=== PATIENT | male | born 1970 | race Caucasian/White ===

== ENCOUNTER 2021-11-09 07:45 | Outpatient (RCR) | payer OTHER, SELFPAY ==
--- NOTE | 2021-10-15 09:37 | PTOPEVAL ---
Thank you for referring Kenny Dia to [facility].? The patient is scheduled to be seen for therapy? 2 x/week for 6 weeks. Please review, sign, date and return this plan of care LATASHA. I agree with and certify that the following plan of care is medically necessary. Referring Physician Date Attending Provider: JANEE,AYANNA TOLBERT Diagnosis lakeisha knee pain with OA Onset chronic Additional Evaluation Detail He received recent injections of his knees. MD is considering knee replacement if injections and therapy do not improve symptoms. Subjective Information He had arthroscopic surgery Query Text:As Reported By Patient/ lakeisha knee ~ 20 yrs ago with Family improved symptoms on right knee only. 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 His knee pain varies daily. Denies any fitness program or stretching program. Pain Assessment Left Knee(s) Reported Pain Level 3 Pain Description Cramping Pain Frequency Chronic,Continuous Lowest Pain Intensity 3 Greatest Pain Intensity 8 Pain Aggravating Factors ADL's,Bending,Exercise/ Activity,Lifting,Prolonged Position,Sitting,Stair Climbing,Walking,Weight Bearing/Standing Right Knee(s) Reported Pain Level 3 Pain Description Cramping Pain Frequency Chronic,Continuous Lowest Pain Intensity 3 Greatest Pain Intensity 8 Pain Aggravating Factors ADL's,Bending,Exercise/ Activity,Lifting,Stair Climbing,Walking,Weight Bearing/Standing Lower Extremity Range of Motion General Lower Extremity Range of Motion Gross Lower Extremity Range of Motion right knee 0-105 dg Comments left knee 0-115 dg pain with lakeisha knee ext Lower Extremity Muscle Strength Testing General Lower Extremity Strength Gross Lower Extremity Strength lakeisha hip flex/ext: 12/02
--- NOTE | 2021-11-12 07:04 | PCPTNOTE ---
Patient called & cancelled scheduled appointment this date due to work. He did not reschedule at this time.
--- NOTE | 2021-11-22 07:19 | PCPTNOTE ---
Pt did not show for today's therapy visit. Called and left a message.
--- NOTE | 2021-11-22 11:11 | PCPTNOTE ---
Spoke with pt, who states he forgot about his appt today. He has f/u with MD this week. Does not think therapy has improved his symptoms significantly. Will DC skilled therapy services at this time.
--- NOTE | 2021-11-22 11:19 | PCPTNOTE ---
Admitting Provider: Attending Provider: JANEE,AYANNA TOLBERT Patient:Kenny Dia Date of :1970 Physical Therapy Discharge Note Patient has been seen for 8 therapy visits with 2 missed visits to address his chronic knee pain. As a result of therapy services he demonstrates slight improved strength and knee motion. He continues to be significantly limited with all daily task and work task due to pain. He has been provided a HEP and demonstrates indep. The goals have been partially met at this time. Will DC skilled therapy services at this time due to limited progress noted with pain and tolerance with functional activities. Thank you for referring this patient to [facility]. Please review, sign, date and return this discharge summary LATASHA. I have been updated about the patient's current status and I agree with discharge from the above service at this time. Referring Physician Date
== END 2021-11-23 09:39 | disposition home or self-care (01) ==
LOC: ANHPT 07:45
PROVIDERS: PCP Family Medicine; Visit Provider Physician Assistant
DX: M17.0 Bilateral primary osteoarthritis of knee (principal)
CPT/HCPCS: 97110; 97112; 97140; 97162; 97530

== ENCOUNTER 2022-07-07 00:24 | Day surgery (SDC) | payer OTHER, SELFPAY ==
[2022-06-28 09:34] VITALS: BMI 40.0
[2022-07-07 06:55] VITALS: BP 163/85; PULSE 83; RESP 18; TEMP 36.2; O2SAT 98
[2022-07-07] MEDS: LACTATED RINGERS 1,000 ML 150 ML IV CONT (07:07)
--- NOTE | 2022-07-07 07:49 | PM.HPGS ---
History of Present Illness History of Present Illness Consent: Risks, benefits, and alternatives have been discussed and questions answered. Patient agrees to proceed with procedure. Chief complaint: neoplasm screening, GERD Narrative: Kenny Dia is a 52 year old male Presents for colonoscopy and EGD. Patient desires neoplasia screening colonoscopy because of his age. He has never had 1. Bowel movements are normally has no bleeding. Additionally patient has a long history of acid reflux in the past. He would have frequent regurgitation. Previously prescribed Nexium. He subsequently discontinued this takes an [id number] acid suppression from [place]. He denies any significant heartburn presently. Over the last year he has had difficulty swallowing solid foods. He states that it catches in his throat. He notices difficulty with solids more so than liquids. Occasionally it will catching is unable to eat any food or liquids until it passes. He returns today for EGD to assess this more thoroughly. Patient denies any prior EGD. Review of Systems Review of Systems: Review of systems noncontributory. [facility] Social History Social History Smoking status: Never smoker Alcohol intake: never Substance use: never Substance use type: does not use Living arrangements: with family Spiritual care concerns: No Meds Home Medications and Allergies Home Medications Medication Instructions Recorded Confirmed Type albuterol sulfate 2.5 mg/3 mL 2.5 mg inhalation Q6H PRN 06/28/22 06/28/22 History (0.083 %) solution for nebulization Shortness Of Breath Or Wheezing albuterol sulfate 90 mcg/actuation 2 puff inhalation Q6H PRN 06/28/22 06/28/22 History aerosol inhaler Shortness Of Breath Or Wheezing amlodipine 10 mg tablet 10 mg PO DAILY 06/28/22 06/28/22 History budesonide-formoterol HFA 160 2 puff inhalation BID 06/28/22 06/28/22 History mcg-4.5 mcg/actuation aerosol inhaler (Symbicort) fluticasone 250 mcg-salmeterol 50 1 inh inhalation BID 06/28/22 06/28/22 History mcg/dose blistr powdr for inhalation (Advair Diskus) lisinopril 30 mg tablet 30 mg PO DAILY 06/28/22 06/28/22 History loratadine 10 mg tablet 10 mg PO DAILY 06/28/22 06/28/22 History meloxicam 15 mg tablet 15 mg PO DAILY 06/28/22 06/28/22 History metformin 500 mg tablet,extended 500 mg PO BID 06/28/22 06/28/22 History release 24 hr montelukast 10 mg tablet 10 mg PO DAILY 06/28/22 06/28/22 History rosuvastatin 10 mg tablet 10 mg PO DAILY 06/28/22 06/28/22 History Allergies Allergy/AdvReac Type Severity Reaction Status Date / Time latex Allergy Severe Swelling Verified 07/07/22 06:58 of Lip/Tongue/Throat Vital Signs Vital Signs - 24 hr 07/07/22 06:55 Temperature 97.1 F L Pulse Rate 83 Respiratory Rate 18 Blood Pressure 163/85 H Pulse Oximetry 98 Oxygen Delivery Room Air Exam Narrative: Physical exam reveals patient to be alert. Vital signs stable. HEENT exam is unremarkable. Patient is anicteric. Lungs are clear to auscultation and percussion. Heart is without murmur or extra sounds. Abdomen bowel sounds are present soft nontender with no organomegaly. Digital external rectal exam is normal. Assessment and Plan Assessment and plan (1) Encounter for screening colonoscopy: Code(s): Z12.11 - Encounter for screening for malignant neoplasm of colon Status: Acute Assessment and Plan: Patient presents for neoplasia screening colonoscopy. He appears to be at average risk for colon polyps. Further recommendations may be given after endoscopy. (2) GERD (gastroesophageal reflux disease): Code(s): K21.9 - Gastro-esophageal reflux disease without esophagitis Status: Acute Assessment and Plan: Patient with longstanding history of GE reflux disease. Currently most symptoms are controlled taking medication which is suspected to be famotidine. Previ
--- NOTE | 2022-07-07 07:53 | P.PNAN_ITS ---
Anes - Initial Pre Proc Eval Procedure: Operation Date: 07/07/22 08:00 Proposed Procedures p Screening Colonoscopy - Naun Guy MD s Esophagogastroduodenoscopy - Naun Guy MD Date/Time: 07/07/22 07:53 Surgeon: Naun Guy MD Pre Op Diagnosis: neoplasm screening, GERD Patient Data Age: 52 Gender: M Height: 1.68 m Weight: 111.2 kg Last Vital Signs Temp 97.1 F L 07/07/22 06:55 Pulse 83 07/07/22 06:55 Resp 18 07/07/22 06:55 BP 163/85 H 07/07/22 06:55 Pulse Ox 98 07/07/22 06:55 O2 Del Method Room Air 07/07/22 06:55 Allergies Allergy/AdvReac Type Severity Reaction Status Date / Time latex Allergy Severe Swelling Verified 07/07/22 06:58 of Lip/Tongue/Throat Home Medications Medication Instructions Recorded Confirmed Type albuterol sulfate 2.5 mg/3 mL 2.5 mg inhalation Q6H PRN 06/28/22 06/28/22 History (0.083 %) solution for nebulization Shortness Of Breath Or Wheezing albuterol sulfate 90 mcg/actuation 2 puff inhalation Q6H PRN 06/28/22 06/28/22 History aerosol inhaler Shortness Of Breath Or Wheezing amlodipine 10 mg tablet 10 mg PO DAILY 06/28/22 06/28/22 History budesonide-formoterol HFA 160 2 puff inhalation BID 06/28/22 06/28/22 History mcg-4.5 mcg/actuation aerosol inhaler (Symbicort) fluticasone 250 mcg-salmeterol 50 1 inh inhalation BID 06/28/22 06/28/22 History mcg/dose blistr powdr for inhalation (Advair Diskus) lisinopril 30 mg tablet 30 mg PO DAILY 06/28/22 06/28/22 History loratadine 10 mg tablet 10 mg PO DAILY 06/28/22 06/28/22 History meloxicam 15 mg tablet 15 mg PO DAILY 06/28/22 06/28/22 History metformin 500 mg tablet,extended 500 mg PO BID 06/28/22 06/28/22 History release 24 hr montelukast 10 mg tablet 10 mg PO DAILY 06/28/22 06/28/22 History rosuvastatin 10 mg tablet 10 mg PO DAILY 06/28/22 06/28/22 History Patient hx anesthesia problems: none Family hx anesthesia problems: none Results Review: All pre-operative results and documents have been reviewed as part of the pre- operative evaluation. [facility] [place] Social History Social History Smoking status: Never smoker Alcohol intake: never Substance use: never Substance use type: does not use Living arrangements: with family Spiritual care concerns: No Anes - Eval Final PreProcedure Day of Procedure 07/07/22 07:53 Patient weight: morbidly obese Heart: regular rate and rhythm Lungs: clear to auscultation Airway: Mallampati scale class III Neurological: alert and oriented Last oral intake: >/= 8 hours ASA classification: III Emergent: no Anesthetic plan: proceed Anesthesia type and monitoring: general GIVS and standard monitoring Results Review: All pre-operative results and documents have been reviewed as part of the pre- operative evaluation. Informed Consent: The patient's anesthetic plan and its attendant risks and benefits were discussed with the patient/family/POA. Questions were solicited and answers provided to the satisfaction of the patient/family/POA.
[2022-07-07 08:36] VITALS: BP 135/87; PULSE 93; RESP 20; O2SAT 99
--- NOTE | 2022-07-07 08:37 | SUR.OPER ---
EGD started at 0805 and ended at 0809. Colonoscopy started at 0816 and ended at 0835.
[2022-07-07 08:46] VITALS: BP 133/89; PULSE 77; RESP 22; O2SAT 98
[2022-07-07 08:56] VITALS: BP 137/86; PULSE 76; RESP 22; O2SAT 97
== END 2022-07-07 09:07 | disposition home or self-care (01) ==
PROVIDERS: PCP Family Medicine; Visit Provider Internal Medicine Gastroenterology
PROC: 0DJD8ZZ Inspection of Lower Intestinal Tract, Via Natural or Artificial Opening Endoscopic (ICD-10-PCS; CPT 45378; principal; 2022-07-07 08:00)
PROC: 0DJ08ZZ Inspection of Upper Intestinal Tract, Via Natural or Artificial Opening Endoscopic (ICD-10-PCS; CPT 43235; 2022-07-07 08:00)
DX: Z12.11 Encounter for screening for malignant neoplasm of colon (principal); D12.2 Benign neoplasm of ascending colon; D12.5 Benign neoplasm of sigmoid colon; K21.9 Gastro-esophageal reflux disease without esophagitis; K22.70 Barrett's esophagus without dysplasia; K57.30 Diverticulosis of large intestine without perforation or abscess without bleeding; R13.10 Dysphagia, unspecified
CPT/HCPCS: 45385; 43239; 43450; 88305; J2704; J7120

== ENCOUNTER 2023-04-24 09:18 | Outpatient (CLI) | payer OTHER, SELFPAY ==
[2023-04-24 10:06] LABS: Hematocrit 33.9 % (42.0-52.0); Hemoglobin 11.1 g/dL (14.0-18.0); Mean Corpuscular HGB Conc 32.7 g/dl (32-36); Mean Corpuscular Hemoglobin 29.4 pg (26-34); Mean Corpuscular Volume 89.9 fl (80-100); Mean Platelet Volume 11.2 fl (7.4-10.4); Platelet Count Result 198 k/mm3 (150-375); Red Blood Count 3.77 M/mm3 (4.6-6.20); Red Cell Distribution Width 12.8 % (11.5-14.5); White Blood Count 4.7 K/mm3 (4.5-10.0)
== END 2023-04-24 09:19 | disposition home or self-care (01) ==
LOC: ANHLAB 09:20
PROVIDERS: PCP Family Medicine; Visit Provider Internal Medicine Gastroenterology
DX: R13.10 Dysphagia, unspecified (principal)
CPT/HCPCS: 36415; 85027

== ENCOUNTER 2023-05-09 00:56 | Day surgery (SDC) | payer OTHER, SELFPAY ==
[2023-04-27 15:13] VITALS: BMI 40.4
[2023-05-09 07:59] VITALS: BP 143/88; PULSE 64; RESP 18; TEMP 36.2; O2SAT 100
[2023-05-09] MEDS: LACTATED RINGERS 1,000 ML 150 ML IV CONT (08:09)
[2023-05-09 08:14] LABS: Glucose Point of Care 120 mg/dl (65-105)
--- NOTE | 2023-05-09 08:54 | WPDANESEPPF ---
Anes - Initial Pre Proc Eval Procedure: Operation Date: 05/09/23 09:00 Proposed Procedures p Esophagogastroduodenoscopy - Naun Guy MD Date/Time: 05/09/23 08:54 Surgeon: Naun Guy MD Pre Op Diagnosis: Andujar's esophagus,Dysphagia,GERD Patient Data Age: 53 Gender: M Height: 1.68 m Weight: 116 kg Last Vital Signs Temp 97.1 F L 05/09/23 07:59 Pulse 64 05/09/23 07:59 Resp 18 05/09/23 07:59 BP 143/88 H 05/09/23 07:59 Pulse Ox 100 05/09/23 07:59 O2 Del Method Room Air 05/09/23 07:59 Allergies Allergy/AdvReac Type Severity Reaction Status Date / Time latex Allergy Severe Swelling Verified 05/09/23 07:58 of Lip/Tongue/Throat Home Medications Medication Instructions Recorded Confirmed Type albuterol sulfate 2.5 mg/3 mL 2.5 mg inhalation Q6H PRN 06/28/22 04/28/23 History (0.083 %) solution for nebulization Shortness Of Breath Or Wheezing albuterol sulfate 90 mcg/actuation 2 puff inhalation Q6H PRN 06/28/22 04/28/23 History aerosol inhaler Shortness Of Breath Or Wheezing amlodipine 10 mg tablet 10 mg PO DAILY 06/28/22 04/28/23 History budesonide-formoterol HFA 160 2 puff inhalation BID 06/28/22 04/28/23 History mcg-4.5 mcg/actuation aerosol inhaler (Symbicort) fluticasone 250 mcg-salmeterol 50 1 inh inhalation BID 06/28/22 04/28/23 History mcg/dose blistr powdr for inhalation (Advair Diskus) lisinopril 30 mg tablet 30 mg PO DAILY 06/28/22 04/28/23 History loratadine 10 mg tablet 10 mg PO DAILY 06/28/22 04/28/23 History meloxicam 15 mg tablet 15 mg PO DAILY 06/28/22 04/28/23 History metformin 500 mg tablet,extended 500 mg PO BID 06/28/22 04/28/23 History release 24 hr montelukast 10 mg tablet 10 mg PO DAILY 06/28/22 04/28/23 History rosuvastatin 10 mg tablet 10 mg PO DAILY 06/28/22 04/28/23 History pantoprazole 40 mg tablet,delayed 40 mg PO BID 04/26/23 04/28/23 History release Laboratory Tests 05/09/23 08:10 POC Capillary Glucose 120 H mg/dl (65-105) Patient hx anesthesia problems: none Family hx anesthesia problems: none Results Review: All pre-operative results and documents have been reviewed as part of the pre-operative evaluation. [facility] Social History Social History Smoking status: Never smoker Alcohol intake: never Substance use: never Substance use type: does not use Living arrangements: with family Spiritual care concerns: No Anes - Eval Final PreProcedure Day of Procedure 05/09/23 08:54 Patient weight: morbidly obese Heart: regular rate and rhythm Lungs: clear to auscultation Airway: Mallampati scale class II Neurological: alert and oriented Last oral intake: >/= 8 hours ASA classification: III Emergent: no Anesthetic plan: proceed Anesthesia type and monitoring: general GIVS and standard monitoring Results Review: All pre-operative results and documents have been reviewed as part of the pre-operative evaluation. Informed Consent: The patient's anesthetic plan and its attendant risks and benefits were discussed with the patient/family/POA. Questions were solicited and answers provided to the satisfaction of the patient/family/POA.
[2023-05-09 09:17] VITALS: BP 142/93; PULSE 65; RESP 21; O2SAT 100
[2023-05-09 09:27] VITALS: BP 139/93; PULSE 66; RESP 19; O2SAT 97
[2023-05-09 09:37] VITALS: BP 137/94; PULSE 72; RESP 21; O2SAT 98
== END 2023-05-09 09:50 | disposition home or self-care (01) ==
PROVIDERS: PCP Family Medicine; Visit Provider Internal Medicine Gastroenterology
PROC: 0DJ08ZZ Inspection of Upper Intestinal Tract, Via Natural or Artificial Opening Endoscopic (ICD-10-PCS; CPT 43235; principal; 2023-05-09 09:00)
DX: K22.70 Barrett's esophagus without dysplasia (principal); R13.19 Other dysphagia; K21.9 Gastro-esophageal reflux disease without esophagitis; Z79.51 Long term (current) use of inhaled steroids; Z79.84 Long term (current) use of oral hypoglycemic drugs; E66.01 Morbid (severe) obesity due to excess calories; Z68.41 Body mass index [BMI] 40.0-44.9, adult
CPT/HCPCS: 43239; 43450; 82948; 88305; J2704; J7120